=== PATIENT | female | born 1945 | race Asian ===

== ENCOUNTER 2018-02-22 14:21 | Emergency (ER) | payer MEDICARE, OTHER ==
[~2018-02-22] VITALS: Ht 162.6 cm; Wt 75.0 kg
[~2018-02-22 14:21] MED LIST: ATOR20TA86 PO; ESOM40CA PO; GLIP5 PO; LEVO25TA9 PO; LOSA25TA21 PO; MECL-111 PO; METF500T6 PO; PRAV40TA4 PO
[2018-02-22] MEDS ORDERED: ENTE1TAB2 PO (14:40)
[2018-02-22] MEDS ORDERED: OS500 PO (14:40)
[2018-02-22 14:49] LABS: GLUCOSE,POINT OF CARE 218 MG/DL (70-110)
[2018-02-22] MEDS ORDERED: MECLIZINE HCL 25 MG TABLET PO ONE (18:30)
[2018-02-22] MEDS ORDERED: SODIUM CHLORIDE 0.9% 1,000 ML IV ONE (18:30)
[2018-02-22 19:01] LABS: APPEARANCE,URINE CLEAR (CLEAR); BILIRUBIN,URINE NEGATIVE (NEGATIVE); GLUCOSE, URINE (UA) NEGATIVE (NEGATIVE); KETONES,URINE NEGATIVE (NEGATIVE); LEUKOCYTE ESTERASE ,URINE NEGATIVE (NEGATIVE); NITRATE,URINE NEGATIVE (NEGATIVE); OCCULT BLOOD,URINE NEGATIVE (NEGATIVE); PROTEIN,URINE NEGATIVE (NEGATIVE); UROBILINOGEN,URINE 0.2 mg/dL (<=1.0)
[2018-02-22 20:12] LABS: BASOPHILS % (AUTO) 0.7 % (0.0-2.0); EOSINOPHILS % (AUTO) 2.8 % (1.0-6.0); HEMATOCRIT 38.1 % (36-46); HEMOGLOBIN 13.5 g/dL (12.0-16.0); LYMPHOCYTES # (AUTO) 2.9 K/uL (1.0-4.8); LYMPHOCYTES % (AUTO) 41.2 % (22.0-44.0); MEAN CORPUSCULAR HEMOGLOBIN 32.6 pg (26.0-34.0); MEAN CORPUSCULAR HGB CONC 35.4 G/dL (31.0-37.0); MEAN CORPUSCULAR VOLUME 92 fL (80-100); MONOCYTES # (AUTO) 0.6 K/uL (0.1-1.0); MONOCYTES % (AUTO) 8.1 % (2.0-9.0); NEUTROPHILS # (AUTO) 3.4 K/uL (1.8-7.7); NEUTROPHILS % (AUTO) 47.2 % (40.0-70.0); PLATELET COUNT (AUTO) 203 K/uL (150-450); RED BLOOD CELL COUNT(AUTO) 4.13 MIL/uL (4.00-5.20); RED CELL DISTRIBUTION WIDTH 13.3 % (11.5-14.5)
[2018-02-22 20:24] LABS: INR 0.9 (0.9-1.1); PROTHROMBIN TIME 9.8 SEC (9.4-11.6)
[2018-02-22 20:26] VITALS: BP 136/75
[2018-02-22 20:29] LABS: ANION GAP 5 mmol/L (8-16); CALCIUM, TOTAL 9.3 mg/dL (8.8-10.5); CARBON DIOXIDE 30 mmol/L (22-29); CHLORIDE 102 mmol/L (98-107); CREATININE 0.95 mg/dL (0.60-1.30); GLOMERULAR FILTR. RATE CALC 58 mL/min (>60); GLUCOSE,RANDOM 128 mg/dL (70-110); POTASSIUM 3.9 mmol/L (3.5-5.1); SODIUM SERUM 137 mmol/L (136-145); UREA NITROGEN, BLOOD 14 mg/dL (7-18)
[2018-02-22 20:33] LABS: B-TYPE NATRIURETIC PEPTIDE 22 pg/mL (0-100)
[2018-02-22 20:56] LABS: ALANINE AMINOTRANSFERASE 39 U/L (12-78); ALBUMIN 3.7 g/dL (3.4-5.0); ALKALINE PHOSPHATASE 58 U/L (46-116); ASPARTATE AMINOTRANSFERASE 19 U/L (15-37); BILIRUBIN,TOTAL 0.3 mg/dL (0.1-1.0); CREATINE KINASE MB 0.5 ng/mL (0-5); CREATINE KINASE, TOTAL 89 U/L (26-192); TOTAL PROTEIN, SERUM 7.6 g/dL (6.4-8.2)
== END 2018-02-22 21:26 | disposition home or self-care (01) ==
LOC: EMS 14:23
DX: R42 Dizziness and giddiness (principal); R53.1 Weakness; E11.9 Type 2 diabetes mellitus without complications; E78.00 Pure hypercholesterolemia, unspecified; I10 Essential (primary) hypertension
CPT/HCPCS: 36415; 70450; 71045; 80053; 81003; 82550; 82553; 82962; 83880; 84484; 85025; 85610; 85730; 93005; 99285; J7030

== ENCOUNTER 2020-09-06 09:40 | Emergency (ER) | payer MEDICARE, OTHER ==
[~2020-09-06] VITALS: Ht 162.6 cm; Wt 72.7 kg
[~2020-09-06 09:40] MED LIST changes: +ENTE1TAB2 PO; -GLIP5 PO; -MECL-111 PO; +MECL-134 PO; +METF-960 PO; -METF500T6 PO; +OS500 PO; -PRAV40TA4 PO
[2020-09-06] MEDS ORDERED: [UNRECOGNIZED DRUG - CODE] PO (10:13)
[2020-09-06 11:27] LABS: EOSINOPHILS % (AUTO) 2.4 % (1.0-6.0); HEMATOCRIT 39.1 % (36-46); HEMOGLOBIN 13.1 g/dL (12.0-16.0); LYMPHOCYTES # (AUTO) 1.6 K/uL (1.0-4.8); LYMPHOCYTES % (AUTO) 25.9 % (22.0-44.0); MEAN CORPUSCULAR HEMOGLOBIN 31.3 pg (26.0-34.0); MEAN CORPUSCULAR HGB CONC 33.5 G/dL (31.0-37.0); MEAN CORPUSCULAR VOLUME 93 fL (80-100); MONOCYTES # (AUTO) 0.5 K/uL (0.1-1.0); MONOCYTES % (AUTO) 7.8 % (2.0-9.0); NEUTROPHILS # (AUTO) 3.8 K/uL (1.8-7.7); NEUTROPHILS % (AUTO) 62.9 % (40.0-70.0); PLATELET COUNT (AUTO) 166 K/uL (150-450); RED BLOOD CELL COUNT(AUTO) 4.18 MIL/uL (4.00-5.20); RED CELL DISTRIBUTION WIDTH 13.6 % (11.5-14.5)
[2020-09-06 11:41] LABS: CALCIUM, TOTAL 9.3 mg/dL (8.8-10.5); CREATININE 0.91 mg/dL (0.60-1.30); POTASSIUM 3.9 mmol/L (3.5-5.1)
[2020-09-06 11:46] LABS: ALBUMIN 3.5 g/dL (3.4-5.0); BILIRUBIN,TOTAL 0.6 mg/dL (0.1-1.0); MAGNESIUM 1.9 mg/dL (1.80-2.40); TOTAL PROTEIN, SERUM 7.5 g/dL (6.4-8.2)
[2020-09-06 13:04] VITALS: BP 151/71
== END 2020-09-06 13:39 | disposition home or self-care (01) ==
LOC: EMS 09:40
DX: R53.1 Weakness (principal); E11.9 Type 2 diabetes mellitus without complications; E78.00 Pure hypercholesterolemia, unspecified; I10 Essential (primary) hypertension; Z20.822 Contact with and (suspected) exposure to COVID-19; Z90.710 Acquired absence of both cervix and uterus
CPT/HCPCS: 80053; 82962; 83690; 83735; 84484; 85025; 93005; 99284; U0003; 82948

== ENCOUNTER 2020-10-19 19:33 | Emergency (ER) | payer MEDICARE, OTHER ==
[~2020-10-19] VITALS: Ht 157.5 cm; Wt 72.7 kg
[~2020-10-19 19:33] MED LIST changes: -ATOR20TA86 PO; -LEVO25TA9 PO; +[UNRECOGNIZED DRUG - CODE] PO
[2020-10-19 21:05] VITALS: BP 126/74
[2020-10-19 21:10] LABS: BASOPHILS % (AUTO) 1.1 % (0.0-2.0); EOSINOPHILS % (AUTO) 2.7 % (1.0-6.0); HEMATOCRIT 41.5 % (36-46); LYMPHOCYTES # (AUTO) 2.4 K/uL (1.0-4.8); MEAN CORPUSCULAR HEMOGLOBIN 31.3 pg (26.0-34.0); MEAN CORPUSCULAR HGB CONC 33.7 G/dL (31.0-37.0); MEAN CORPUSCULAR VOLUME 93 fL (80-100); MONOCYTES # (AUTO) 0.5 K/uL (0.1-1.0); MONOCYTES % (AUTO) 7.6 % (2.0-9.0); NEUTROPHILS # (AUTO) 3.7 K/uL (1.8-7.7); NEUTROPHILS % (AUTO) 53.6 % (40.0-70.0); PLATELET COUNT (AUTO) 200 K/uL (150-450); RED BLOOD CELL COUNT(AUTO) 4.46 MIL/uL (4.00-5.20); RED CELL DISTRIBUTION WIDTH 13.5 % (11.5-14.5)
[2020-10-19 21:29] LABS: ANION GAP 8 mmol/L (8-16); CALCIUM, TOTAL 10.5 mg/dL (8.8-10.5); CARBON DIOXIDE 31 mmol/L (22-29); CHLORIDE 104 mmol/L (98-107); CREATININE 0.85 mg/dL (0.60-1.30); GLUCOSE,RANDOM 100 mg/dL (70-110); POTASSIUM 4.5 mmol/L (3.5-5.1); SODIUM SERUM 143 mmol/L (136-145); UREA NITROGEN, BLOOD 16 mg/dL (7-18)
[2020-10-19 21:34] LABS: GLOMERULAR FILTR. RATE CALC > 60 mL/min (>60)
== END 2020-10-19 21:53 | disposition home or self-care (01) ==
LOC: EMS 19:33
DX: R53.1 Weakness (principal); E11.9 Type 2 diabetes mellitus without complications; E78.00 Pure hypercholesterolemia, unspecified; I10 Essential (primary) hypertension; Z90.710 Acquired absence of both cervix and uterus; Z79.899 Other long term (current) drug therapy
CPT/HCPCS: 99283

== ENCOUNTER 2020-12-16 08:48 | Emergency (ER) | payer MEDICARE, OTHER ==
[~2020-12-16] VITALS: Ht 160 cm; Wt 59.1 kg
[2020-12-16] MEDS ORDERED: CYCLOBENZAPRINE HCL 10 MG TABLET PO ONE (09:45)
[2020-12-16 10:39] LABS: EOSINOPHILS % (AUTO) 3.3 % (1.0-6.0); HEMATOCRIT 39.5 % (36-46); HEMOGLOBIN 13.5 g/dL (12.0-16.0); LYMPHOCYTES # (AUTO) 1.5 K/uL (1.0-4.8); LYMPHOCYTES % (AUTO) 24.2 % (22.0-44.0); MEAN CORPUSCULAR HEMOGLOBIN 32.1 pg (26.0-34.0); MEAN CORPUSCULAR HGB CONC 34.2 G/dL (31.0-37.0); MEAN CORPUSCULAR VOLUME 94 fL (80-100); MONOCYTES # (AUTO) 0.4 K/uL (0.1-1.0); NEUTROPHILS # (AUTO) 3.9 K/uL (1.8-7.7); NEUTROPHILS % (AUTO) 64.5 % (40.0-70.0); PLATELET COUNT (AUTO) 178 K/uL (150-450); RED BLOOD CELL COUNT(AUTO) 4.21 MIL/uL (4.00-5.20); RED CELL DISTRIBUTION WIDTH 13.4 % (11.5-14.5)
[2020-12-16 11:41] LABS: APPEARANCE,URINE CLEAR (CLEAR); BILIRUBIN,URINE NEGATIVE (NEGATIVE); GLUCOSE, URINE (UA) NEGATIVE (NEGATIVE); KETONES,URINE NEGATIVE (NEGATIVE); LEUKOCYTE ESTERASE ,URINE NEGATIVE (NEGATIVE); NITRATE,URINE NEGATIVE (NEGATIVE); OCCULT BLOOD,URINE TRACE (NEGATIVE); PH,URINE 5.5 (5.0-8.0); PROTEIN,URINE NEGATIVE (NEGATIVE); UROBILINOGEN,URINE 0.2 mg/dL (<=1.0)
[2020-12-16 11:57] LABS: BACTERIA,URINE None Seen /HPF (None Seen); RBC,URINE None Seen /HPF (0-2); SQUAMOUS EPITHELIAL CELL,UR Few /LPF (None Seen); WBC,URINE None Seen /HPF (0-5)
[2020-12-16 13:08] LABS: ANION GAP 13 mmol/L (8-16); CALCIUM, TOTAL 9.4 mg/dL (8.8-10.5); CARBON DIOXIDE 24 mmol/L (22-29); CHLORIDE 105 mmol/L (98-107); CREATININE 0.79 mg/dL (0.60-1.30); GLOMERULAR FILTR. RATE CALC > 60 mL/min (>60); GLUCOSE,RANDOM 144 mg/dL (70-110); POTASSIUM 4.3 mmol/L (3.5-5.1); SODIUM SERUM 142 mmol/L (136-145); UREA NITROGEN, BLOOD 16 mg/dL (7-18)
[2020-12-16 13:12] LABS: BILIRUBIN,TOTAL 0.6 mg/dL (0.1-1.0); TOTAL PROTEIN, SERUM 8.1 g/dL (6.4-8.2)
[2020-12-16 13:23] LABS: ALANINE AMINOTRANSFERASE 43 U/L (12-78); ALBUMIN 4.1 g/dL (3.4-5.0); ALKALINE PHOSPHATASE 52 U/L (46-116); ASPARTATE AMINOTRANSFERASE 22 U/L (15-37)
[2020-12-16 13:50] VITALS: BP 123/65
== END 2020-12-16 13:55 | disposition home or self-care (01) ==
LOC: EMS 08:53
DX: R42 Dizziness and giddiness (principal); M54.2 Cervicalgia; I10 Essential (primary) hypertension; E11.9 Type 2 diabetes mellitus without complications; E78.00 Pure hypercholesterolemia, unspecified
CPT/HCPCS: 70450; 80053; 81001; 85025; 93005; 99285

== ENCOUNTER 2020-12-19 08:40 | Emergency (ER) | payer MEDICARE, OTHER ==
[~2020-12-19] VITALS: Ht 160 cm; Wt 75.0 kg
[2020-12-19] MEDS ORDERED: MECLIZINE HCL 25 MG TABLET PO ONE (09:00)
[2020-12-19 09:44] LABS: BASOPHILS % (AUTO) 1.1 % (0.0-2.0); EOSINOPHILS % (AUTO) 2.4 % (1.0-6.0); HEMOGLOBIN 13.9 g/dL (12.0-16.0); LYMPHOCYTES % (AUTO) 28.5 % (22.0-44.0); MEAN CORPUSCULAR HEMOGLOBIN 31.9 pg (26.0-34.0); MEAN CORPUSCULAR VOLUME 94 fL (80-100); MONOCYTES # (AUTO) 0.5 K/uL (0.1-1.0); NEUTROPHILS # (AUTO) 4.2 K/uL (1.8-7.7); RED BLOOD CELL COUNT(AUTO) 4.37 MIL/uL (4.00-5.20); RED CELL DISTRIBUTION WIDTH 13.4 % (11.5-14.5)
[2020-12-19 09:50] LABS: ANION GAP 13 mmol/L (8-16); CALCIUM, TOTAL 9.8 mg/dL (8.8-10.5); CARBON DIOXIDE 25 mmol/L (22-29); CHLORIDE 101 mmol/L (98-107); CREATININE 0.87 mg/dL (0.60-1.30); GLUCOSE,RANDOM 174 mg/dL (70-110); POTASSIUM 4.1 mmol/L (3.5-5.1); SODIUM SERUM 139 mmol/L (136-145); UREA NITROGEN, BLOOD 14 mg/dL (7-18)
[2020-12-19 09:51] LABS: GLOMERULAR FILTR. RATE CALC > 60 mL/min (>60)
[2020-12-19 10:12] LABS: B-TYPE NATRIURETIC PEPTIDE 9 pg/mL (0-100)
[2020-12-19 10:15] LABS: ALANINE AMINOTRANSFERASE 46 U/L (12-78); ALBUMIN 4.1 g/dL (3.4-5.0); ALKALINE PHOSPHATASE 57 U/L (46-116); ASPARTATE AMINOTRANSFERASE 28 U/L (15-37); BILIRUBIN,TOTAL 0.6 mg/dL (0.1-1.0); CREATINE KINASE, TOTAL ONLY 80 U/L (26-192); TOTAL PROTEIN, SERUM 7.8 g/dL (6.4-8.2)
[2020-12-19 10:46] LABS: PLATELET COUNT (AUTO) 172 K/uL (150-450)
[2020-12-19 10:48] LABS: APPEARANCE,URINE CLEAR (CLEAR); BILIRUBIN,URINE NEGATIVE (NEGATIVE); GLUCOSE, URINE (UA) 100 mg/dL (NEGATIVE); KETONES,URINE NEGATIVE (NEGATIVE); LEUKOCYTE ESTERASE ,URINE NEGATIVE (NEGATIVE); NITRATE,URINE NEGATIVE (NEGATIVE); OCCULT BLOOD,URINE SMALL (NEGATIVE); PH,URINE 5.5 (5.0-8.0); PROTEIN,URINE NEGATIVE (NEGATIVE); UROBILINOGEN,URINE 0.2 mg/dL (<=1.0)
[2020-12-19 10:52] VITALS: BP 140/74
[2020-12-19 10:53] LABS: AMPHET/METH SCREEN,URINE NEGATIVE (NEGATIVE); BARBITURATE SCREEN, URINE NEGATIVE (NEGATIVE); BENZODIAZEPINES SCREEN,URINE NEGATIVE (NEGATIVE); CANNABINOID SCREEN,URINE NEGATIVE (NEGATIVE); COCAINE SCREEN,URINE NEGATIVE (NEGATIVE); METHADONE SCREEN, URINE NEGATIVE (NEGATIVE); OPIATE SCREEN,URINE NEGATIVE (NEGATIVE)
[2020-12-19 10:55] LABS: BACTERIA,URINE None Seen /HPF (None Seen); RBC,URINE 0-2 /HPF (0-2); WBC,URINE None Seen /HPF (0-5)
[2020-12-19 10:56] LABS: SQUAMOUS EPITHELIAL CELL,UR Rare /LPF (None Seen)
[2020-12-19 10:57] LABS: PHENCYCLIDINE SCREEN,URINE NEGATIVE (NEGATIVE)
== END 2020-12-19 11:13 | disposition home or self-care (01) ==
LOC: EMS 08:40
DX: F41.9 Anxiety disorder, unspecified (principal)
CPT/HCPCS: 36415; 71045; 80053; 80307; 81001; 82550; 83880; 84484; 85025; 93005; 99285; G0480

== ENCOUNTER 2021-01-14 06:51 | Emergency (ER) | payer MEDICARE, OTHER ==
[~2021-01-14] VITALS: Ht 162.6 cm; Wt 75.0 kg
[~2021-01-14 06:51] MED LIST changes: -ENTE1TAB2 PO; +ENTE1TAB7 PO
[2021-01-14] MEDS ORDERED: MECLIZINE HCL 25 MG TABLET PO ONE (07:00)
[2021-01-14] MEDS ORDERED: ACETAMINOPHEN 500 MG TABLET PO ONE (07:00)
[2021-01-14 07:24] LABS: COVID AG,FIA SOURCE NASOPHARYNGEAL
[2021-01-14] MEDS ORDERED: SODIUM CHLORIDE 0.9% 1,000 ML IV ONE ×2 (07:30→09:00)
[2021-01-14 08:04] LABS: CALCIUM, TOTAL 9.6 mg/dL (8.8-10.5); CREATININE 1.01 mg/dL (0.60-1.30); POTASSIUM 3.9 mmol/L (3.5-5.1)
[2021-01-14 08:07] LABS: BASOPHILS % (AUTO) 0.8 % (0.0-2.0); EOSINOPHILS % (AUTO) 1.1 % (1.0-6.0); HEMATOCRIT 39.8 % (36-46); HEMOGLOBIN 13.5 g/dL (12.0-16.0); LYMPHOCYTES # (AUTO) 1.7 K/uL (1.0-4.8); LYMPHOCYTES % (AUTO) 26.7 % (22.0-44.0); MEAN CORPUSCULAR HEMOGLOBIN 31.6 pg (26.0-34.0); MEAN CORPUSCULAR HGB CONC 34.1 G/dL (31.0-37.0); MEAN CORPUSCULAR VOLUME 93 fL (80-100); MONOCYTES # (AUTO) 0.3 K/uL (0.1-1.0); MONOCYTES % (AUTO) 5.4 % (2.0-9.0); NEUTROPHILS # (AUTO) 4.1 K/uL (1.8-7.7); PLATELET COUNT (AUTO) 208 K/uL (150-450); RED BLOOD CELL COUNT(AUTO) 4.29 MIL/uL (4.00-5.20); RED CELL DISTRIBUTION WIDTH 13.2 % (11.5-14.5)
[2021-01-14 08:15] LABS: APPEARANCE,URINE CLEAR (CLEAR); BILIRUBIN,URINE NEGATIVE (NEGATIVE); GLUCOSE, URINE (UA) 250 mg/dL (NEGATIVE); KETONES,URINE NEGATIVE (NEGATIVE); LEUKOCYTE ESTERASE ,URINE NEGATIVE (NEGATIVE); NITRATE,URINE NEGATIVE (NEGATIVE); OCCULT BLOOD,URINE TRACE (NEGATIVE); PH,URINE 5.5 (5.0-8.0); PROTEIN,URINE NEGATIVE (NEGATIVE); UROBILINOGEN,URINE 0.2 mg/dL (<=1.0)
[2021-01-14 08:29] LABS: BILIRUBIN,TOTAL 0.5 mg/dL (0.1-1.0); TOTAL PROTEIN, SERUM 7.7 g/dL (6.4-8.2)
[2021-01-14 08:30] LABS: BACTERIA,URINE None Seen /HPF (None Seen); RBC,URINE None Seen /HPF (0-2); SQUAMOUS EPITHELIAL CELL,UR Few /LPF (None Seen); WBC,URINE 0-2 /HPF (0-5)
[2021-01-14 08:38] LABS: LACTIC ACID 2.7 mmol/L (0.4-2.0)
[2021-01-14 13:07] VITALS: BP 128/65
== END 2021-01-14 13:26 | disposition home or self-care (01) ==
LOC: EMS 06:51
DX: R42 Dizziness and giddiness (principal); E11.9 Type 2 diabetes mellitus without complications; F41.9 Anxiety disorder, unspecified; I10 Essential (primary) hypertension; Z20.822 Contact with and (suspected) exposure to COVID-19
CPT/HCPCS: 36415; 70450; 71045; 80053; 81001; 82550; 83605; 83880; 84484; 85025; 87040; 87426; 93005; 96360; 96361; 99285; J7030

== ENCOUNTER 2021-08-11 14:21 | Emergency (ER) | payer MEDICARE, OTHER ==
[~2021-08-11] VITALS: Ht 152.4 cm; Wt 67.8 kg
[~2021-08-11 14:21] MED LIST changes: +AMLO2.5T96 PO; +APIX2.5T PO; -ENTE1TAB7 PO; -ESOM40CA PO; -LOSA25TA21 PO; +LOSA50TA37 PO; -MECL-134 PO; +MELA5TAB40 PO; +METF-1211 PO; -METF-960 PO; +MIRT-89 PO; +OMEG-135 PO; -OS500 PO; +PANT-31 PO; +PARO10TA71 PO; -[UNRECOGNIZED DRUG - CODE] PO
[2021-08-11 14:23] LABS: BASOPHILS % (AUTO) 0.5 % (0.0-2.0); EOSINOPHILS % (AUTO) 0.7 % (1.0-6.0); HEMATOCRIT 41.2 % (36-46); HEMOGLOBIN 14.6 g/dL (12.0-16.0); LYMPHOCYTES # (AUTO) 1.6 K/uL (1.0-4.8); MEAN CORPUSCULAR HEMOGLOBIN 32.2 pg (26.0-34.0); MEAN CORPUSCULAR HGB CONC 35.3 G/dL (31.0-37.0); MEAN CORPUSCULAR VOLUME 91 fL (80-100); MONOCYTES # (AUTO) 0.6 K/uL (0.1-1.0); MONOCYTES % (AUTO) 9.3 % (2.0-9.0); NEUTROPHILS # (AUTO) 4.6 K/uL (1.8-7.7); NEUTROPHILS % (AUTO) 66.5 % (40.0-70.0); PLATELET COUNT (AUTO) 266 K/uL (150-450); RED BLOOD CELL COUNT(AUTO) 4.52 MIL/uL (4.00-5.20); RED CELL DISTRIBUTION WIDTH 13.3 % (11.5-14.5)
[2021-08-11 14:35] LABS: PROTHROMBIN TIME 10.5 SEC (9.4-11.6)
[2021-08-11 14:36] LABS: ANION GAP 9 mmol/L (8-16); CALCIUM, TOTAL 9.6 mg/dL (8.8-10.5); CARBON DIOXIDE 28 mmol/L (22-29); CHLORIDE 98 mmol/L (98-107); CREATININE 0.91 mg/dL (0.60-1.30); GLOMERULAR FILTR. RATE CALC 60 mL/min (>60); GLUCOSE,RANDOM 168 mg/dL (70-110); POTASSIUM 3.9 mmol/L (3.5-5.1); SODIUM SERUM 135 mmol/L (136-145); UREA NITROGEN, BLOOD 18 mg/dL (7-18)
[2021-08-11 14:40] LABS: ALANINE AMINOTRANSFERASE 29 U/L (12-78); ALBUMIN 3.6 g/dL (3.4-5.0); ALKALINE PHOSPHATASE 61 U/L (46-116); ASPARTATE AMINOTRANSFERASE 17 U/L (15-37); BILIRUBIN,TOTAL 0.4 mg/dL (0.1-1.0); LIPASE 345 U/L (73-393); TOTAL PROTEIN, SERUM 7.9 g/dL (6.4-8.2)
[2021-08-11 14:48] LABS: COVID AG,FIA SOURCE NASOPHARYNGEAL
[2021-08-11 16:48] VITALS: BP 158/82
== END 2021-08-11 16:57 | disposition home or self-care (01) ==
LOC: EMS 14:27
DX: G47.00 Insomnia, unspecified (principal); F41.9 Anxiety disorder, unspecified; R42 Dizziness and giddiness; E11.9 Type 2 diabetes mellitus without complications; E78.00 Pure hypercholesterolemia, unspecified; I10 Essential (primary) hypertension; Z20.822 Contact with and (suspected) exposure to COVID-19; Z90.710 Acquired absence of both cervix and uterus; Z79.84 Long term (current) use of oral hypoglycemic drugs
CPT/HCPCS: 36415; 71045; 80053; 82962; 83690; 84484; 85025; 85610; 87426; 93005; 99285; G0480; 82948

== ENCOUNTER 2021-11-02 12:38 | Emergency (ER) | payer MEDICARE, OTHER ==
[~2021-11-02] VITALS: Ht 160 cm; Wt 63.6 kg
[~2021-11-02 12:38] MED LIST changes: +LOSA-382 PO; -LOSA50TA37 PO; +OMEG-108 PO; -OMEG-135 PO
[2021-11-02] MEDS ORDERED: ACETAMINOPHEN 500 MG TABLET PO ONE (13:00)
[2021-11-02 13:10] VITALS: BP 108/70
[2021-11-02 13:21] LABS: COVID AG,FIA SOURCE NASOPHARYNGEAL
== END 2021-11-02 14:18 | disposition home or self-care (01) ==
LOC: EMS 12:42
DX: R05.9 Cough, unspecified (principal); R50.9 Fever, unspecified; Z20.822 Contact with and (suspected) exposure to COVID-19; I10 Essential (primary) hypertension; F32.9 Major depressive disorder, single episode, unspecified; Z79.899 Other long term (current) drug therapy; Z79.84 Long term (current) use of oral hypoglycemic drugs
CPT/HCPCS: 71045; 82962; 99284

== ENCOUNTER 2021-11-19 11:29 | Inpatient (IN) | payer MEDICARE, OTHER ==
[~2021-11-19] VITALS: Ht 160 cm; Wt 69.8 kg
[2021-11-19] MEDS ORDERED: MIDAZOLAM HCL 2 MG/2 ML VIAL IVP ONE (12:00)
[2021-11-19] MEDS ORDERED: FentaNYL CITRATE PF 100 MCG/2 ML VIAL IVP ONE (12:00)
[2021-11-19] MEDS ORDERED: SODIUM CHLORIDE 0.9% 1,000 ML IV ONE (13:00)
[2021-11-19] MEDS ORDERED: 0.9% SODIUM CHLORIDE 10 ML SYRINGE IVP PRN (13:00)
[2021-11-19 13:21] LABS: BASOPHILS % (AUTO) 0.5 % (0.0-2.0); EOSINOPHILS % (AUTO) 3.8 % (1.0-6.0); HEMATOCRIT 34.8 % (36-46); HEMOGLOBIN 11.8 g/dL (12.0-16.0); LYMPHOCYTES # (AUTO) 1.6 K/uL (1.0-4.8); LYMPHOCYTES % (AUTO) 22.6 % (22.0-44.0); MEAN CORPUSCULAR HEMOGLOBIN 31.5 pg (26.0-34.0); MEAN CORPUSCULAR HGB CONC 33.8 G/dL (31.0-37.0); MEAN CORPUSCULAR VOLUME 93 fL (80-100); MONOCYTES # (AUTO) 0.7 K/uL (0.1-1.0); MONOCYTES % (AUTO) 9.2 % (2.0-9.0); NEUTROPHILS # (AUTO) 4.6 K/uL (1.8-7.7); NEUTROPHILS % (AUTO) 63.9 % (40.0-70.0); PLATELET COUNT (AUTO) 220 K/uL (150-450); RED BLOOD CELL COUNT(AUTO) 3.73 MIL/uL (4.00-5.20); RED CELL DISTRIBUTION WIDTH 13.3 % (11.5-14.5)
[2021-11-19 13:36] LABS: CREATININE 1.03 mg/dL (0.60-1.30); POTASSIUM 3.8 mmol/L (3.5-5.1)
[2021-11-19 13:42] LABS: ALBUMIN 3.5 g/dL (3.4-5.0); BILIRUBIN,TOTAL 0.2 mg/dL (0.1-1.0); TOTAL PROTEIN, SERUM 7.4 g/dL (6.4-8.2)
[2021-11-19] MEDS ORDERED: IOHEXOL 350 MG/ML 100 ML VIAL ONE (15:56)
[2021-11-19] MEDS ORDERED: SODIUM CHLORIDE 0.9% 100 ML ONE (15:56)
[2021-11-19] MEDS ORDERED: PIPERACILLIN/TAZO 3.375 GM/D5W 50 ML IV ONE (20:45)
[2021-11-19 21:41] LABS: GLUCOMETER DEV NAME(LOC) ERT.5; GLUCOSE,POINT OF CARE 133 MG/DL (70-110)
[2021-11-19] MEDS ORDERED: MAGNESIUM HYDROXIDE SUSPENSION 30 ML UDCUP PO PRN (22:15)
[2021-11-19] MEDS ORDERED: BISACODYL 10 MG RECTAL RECTAL SUPPOSITORY PR PRN (22:15)
[2021-11-19] MEDS ORDERED: ALBUTEROL SULFATE 2.5 MG/0.5 ML NEB SOLUTION NEB PRN (22:15)
[2021-11-19] MEDS ORDERED: IPRATROPIUM BROMIDE 0.5 MG/2.5 ML NEB SOLUTION NEB PRN (22:15)
[2021-11-19] MEDS ORDERED: ZOLPIDEM TARTRATE 5 MG TABLET PO PRN (22:15)
[2021-11-19] MEDS ORDERED: HYDROCODONE/ACETAMINOPHEN 5-325 MG TABLET PO PRN (22:15)
[2021-11-19] MEDS ORDERED: ONDANSETRON HCL 4 MG/2 ML VIAL IVP PRN (22:15)
[2021-11-19 23:32] VITALS: BP 155/66
[2021-11-20] MEDS: HEPARIN SODIUM,PORCINE 5,000 UNITS/ML VIAL SQ SCH ×4 (01:01→23:32)
[2021-11-20 02:11] LABS: GLUCOMETER DEV NAME(LOC) 6N.2; GLUCOSE,POINT OF CARE 107 MG/DL (70-110)
[2021-11-20] MEDS ORDERED: PIPERACILLIN/TAZO 3.375 GM/D5W 50 ML IV ONE (04:00)
[2021-11-20 05:21] VITALS: BP 120/56
[2021-11-20 07:56] LABS: GLUCOMETER DEV NAME(LOC) 6S.1B; GLUCOSE,POINT OF CARE 117 MG/DL (70-110)
[2021-11-20 08:00] VITALS: BP_SYST 105; BP_SYST 124; BP_DIAS 54; BP_DIAS 61
[2021-11-20] MEDS: PANTOPRAZOLE SODIUM 40 MG/VIAL IVP SCH (08:43)
[2021-11-20] MEDS: AmLODIPine BESYLATE 2.5 MG TABLET PO SCH (08:43)
[2021-11-20] MEDS: DOCUSATE SODIUM 100 MG CAPSULE PO SCH ×2 (08:44→21:00)
[2021-11-20] MEDS: PARoxetine HCL 10 MG TABLET PO SCH ×3 (08:44→21:00)
[2021-11-20] MEDS: ACETAMINOPHEN 325 MG TABLET PO PRN (08:50)
[2021-11-20] MEDS: LOSARTAN POTASSIUM 50 MG TABLET PO SCH (08:52)
[2021-11-20] MEDS ORDERED: PANTOPRAZOLE SODIUM 40 MG DR TABLET PO SCH (09:00)
[2021-11-20] MEDS: DEXTROSE 5%-0.45% SODIUM CHL 1,000 ML IV SCH (10:03)
[2021-11-20 11:16] LABS: GLUCOMETER DEV NAME(LOC) 6S.1B; GLUCOSE,POINT OF CARE 145 MG/DL (70-110)
[2021-11-20] MEDS: PIPERACILLIN/TAZO 3.375 GM/D5W 50 ML IV SCH ×3 (12:31→23:36)
[2021-11-20] MEDS ORDERED: MECL-160 PO (14:17)
[2021-11-20] MEDS ORDERED: QUET25TA PO (14:20)
[2021-11-20] MEDS ORDERED: METF-1211 PO (14:21)
[2021-11-20] MEDS ORDERED: LORA-999 PO (14:22)
[2021-11-20] MEDS ORDERED: DEXTROSE 50%-WATER 25 GM/50 ML SYRINGE IVP PRN (14:45)
[2021-11-20] MEDS ORDERED: LIDOCAINE/PF 2% 5 ML SYRINGE IVP ONE (15:14)
[2021-11-20] MEDS ORDERED: PROPOFOL 1% 20 ML VIAL IVP ONE (15:14)
[2021-11-20] MEDS ORDERED: ROCURONIUM BROMIDE 10 MG/ML 5 ML VIAL IVP ONE (15:14)
[2021-11-20] MEDS ORDERED: ONDANSETRON HCL 4 MG/2 ML VIAL IVP ONE (15:14)
[2021-11-20] MEDS ORDERED: ESMOLOL HCL 10 MG/ML 10 ML VIAL IVP ONE (15:14)
[2021-11-20] MEDS ORDERED: GLYCOPYRROLATE 0.2 MG/ML VIAL IM ONE (15:14)
[2021-11-20] MEDS ORDERED: EPHEDrine SULFATE 50 MG/ML VIAL IM ONE (15:14)
[2021-11-20] MEDS ORDERED: RINGERS SOLUTION,LACTATED 1,000 ML IV ONE (15:23)
[2021-11-20 15:37] LABS: COVID AG,FIA SOURCE NASOPHARYNGEAL
[2021-11-20] MEDS ORDERED: BUPIVACAINE 0.25%/EPI 1:200,000/PF 10 ML VIAL ONE (16:51)
[2021-11-20] MEDS ORDERED: SODIUM CHLORIDE 0.9% 0 ML ONE (16:52)
[2021-11-20] MEDS ORDERED: SUGAMMADEX SODIUM 200 MG/2 ML VIAL IVP ONE (17:28)
[2021-11-20] MEDS: MORPHINE SULFATE 2 MG/ML SYRINGE IVP PRN ×2 (18:31→21:00)
[2021-11-20 19:16] LABS: GLUCOMETER DEV NAME(LOC) 6N.2; GLUCOSE,POINT OF CARE 188 MG/DL (70-110)
[2021-11-20 19:59] VITALS: BP 127/63
[2021-11-20] MEDS: OMEGA-3/DHA/EPA/FISH OIL 1,000 MG CAPSULE PO SCH (21:00)
[2021-11-20] MEDS: MIRTAZAPINE 15 MG TABLET PO SCH (21:00)
[2021-11-20] MEDS: MELATONIN 5 MG TABLET PO SCH (21:00)
[2021-11-20 21:06] LABS: GLUCOMETER DEV NAME(LOC) 6N.2; GLUCOSE,POINT OF CARE 192 MG/DL (70-110)
[2021-11-20] MEDS: INSULIN LISPRO 100 UNITS/ML SQ PRN (21:22)
[2021-11-20 22:11] LABS: GLUCOMETER DEV NAME(LOC) 6N.2; GLUCOSE,POINT OF CARE 197 MG/DL (70-110)
[2021-11-21] MEDS: DEXTROSE 5%-0.45% SODIUM CHL 1,000 ML IV SCH ×2 (00:18→15:58)
[2021-11-21 03:36] VITALS: BP 107/60
[2021-11-21] MEDS: MORPHINE SULFATE 2 MG/ML SYRINGE IVP PRN (04:14)
[2021-11-21] MEDS: PIPERACILLIN/TAZO 3.375 GM/D5W 50 ML IV SCH ×3 (06:51→16:14)
[2021-11-21] MEDS: INSULIN LISPRO 100 UNITS/ML SQ PRN ×3 (06:53→17:39)
[2021-11-21] MEDS: LEVOTHYROXINE SODIUM 25 MCG TABLET PO SCH (07:00)
[2021-11-21] MEDS: PANTOPRAZOLE SODIUM 40 MG/VIAL IVP SCH (07:57)
[2021-11-21] MEDS: AmLODIPine BESYLATE 2.5 MG TABLET PO SCH (07:58)
[2021-11-21] MEDS: QUEtiapine FUMARATE 25 MG TABLET PO SCH (07:58)
[2021-11-21] MEDS: PARoxetine HCL 10 MG TABLET PO SCH ×3 (07:58→21:15)
[2021-11-21] MEDS: LOSARTAN POTASSIUM 50 MG TABLET PO SCH (07:58)
[2021-11-21] MEDS: DOCUSATE SODIUM 100 MG CAPSULE PO SCH ×2 (07:58→21:15)
[2021-11-21] MEDS: HEPARIN SODIUM,PORCINE 5,000 UNITS/ML VIAL SQ SCH ×2 (07:58→16:14)
[2021-11-21 08:41] VITALS: BP 128/64
[2021-11-21] MEDS ORDERED: MECLIZINE HCL 25 MG TABLET PO PRN (09:00)
[2021-11-21] MEDS: LORazepam 0.5 MG TABLET PO SCH (09:52)
[2021-11-21 12:26] LABS: GLUCOMETER DEV NAME(LOC) 6S.1B; GLUCOSE,POINT OF CARE 164 MG/DL (70-110)
[2021-11-21 12:26] LABS: GLUCOMETER DEV NAME(LOC) 6S.1B; GLUCOSE,POINT OF CARE 172 MG/DL (70-110)
[2021-11-21 16:10] VITALS: BP 125/62
[2021-11-21 18:11] LABS: GLUCOMETER DEV NAME(LOC) 6S.1B; GLUCOSE,POINT OF CARE 198 MG/DL (70-110)
[2021-11-21 20:07] VITALS: BP 116/68
[2021-11-21] MEDS: OMEGA-3/DHA/EPA/FISH OIL 1,000 MG CAPSULE PO SCH (21:15)
[2021-11-21] MEDS: MIRTAZAPINE 15 MG TABLET PO SCH (21:15)
[2021-11-21] MEDS: MELATONIN 5 MG TABLET PO SCH (21:15)
[2021-11-21 21:41] LABS: GLUCOMETER DEV NAME(LOC) 6N.1; GLUCOSE,POINT OF CARE 122 MG/DL (70-110)
[2021-11-22 04:48] VITALS: BP 130/75
[2021-11-22] MEDS: LEVOTHYROXINE SODIUM 25 MCG TABLET PO SCH (06:18)
[2021-11-22 07:21] LABS: GLUCOMETER DEV NAME(LOC) 6S.1B; GLUCOSE,POINT OF CARE 138 MG/DL (70-110)
[2021-11-22] MEDS: HEPARIN SODIUM,PORCINE 5,000 UNITS/ML VIAL SQ SCH ×2 (08:00)
[2021-11-22] MEDS: PANTOPRAZOLE SODIUM 40 MG/VIAL IVP SCH (09:00)
[2021-11-22] MEDS: DOCUSATE SODIUM 100 MG CAPSULE PO SCH (09:17)
[2021-11-22] MEDS: LOSARTAN POTASSIUM 50 MG TABLET PO SCH (09:17)
[2021-11-22] MEDS: PARoxetine HCL 10 MG TABLET PO SCH (09:17)
[2021-11-22] MEDS: QUEtiapine FUMARATE 25 MG TABLET PO SCH (09:17)
[2021-11-22] MEDS: AmLODIPine BESYLATE 2.5 MG TABLET PO SCH (09:17)
[2021-11-22] MEDS: LORazepam 0.5 MG TABLET PO SCH (09:17)
[2021-11-22 09:47] VITALS: BP 139/76
[2021-11-22] MEDS: ACETAMINOPHEN 325 MG TABLET PO PRN (11:49)
[2021-11-22] MEDS: INSULIN LISPRO 100 UNITS/ML SQ PRN (11:59)
[2021-11-22 12:21] LABS: GLUCOMETER DEV NAME(LOC) 6N.2; GLUCOSE,POINT OF CARE 166 MG/DL (70-110)
== END 2021-11-22 15:15 | disposition home or self-care (01) | DRG 343 ==
LOC: EMS 11:33 → 6S 22:27
PROVIDERS: ADMIT Hospitalist; ATTEND Hospitalist
PROC: 0DTJ4ZZ Resection of Appendix, Percutaneous Endoscopic Approach (ICD-10-PCS; principal; 2021-11-20 16:30)
DX: K35.80 Unspecified acute appendicitis (principal); K21.9 Gastro-esophageal reflux disease without esophagitis; E11.9 Type 2 diabetes mellitus without complications; F32.A Depression, unspecified; G47.00 Insomnia, unspecified; I10 Essential (primary) hypertension; Z20.822 Contact with and (suspected) exposure to COVID-19; Z86.19 Personal history of other infectious and parasitic diseases
CPT/HCPCS: 74022; 74177; 80053; 82948; 82962; 85025; 87081; 88304; 99285; C9113; J0690; J1644; J2250; J2270; J2405; J2543; J2704; J3010; J3490; J7030; J7050; J7120; Q9967

== ENCOUNTER 2021-11-25 14:35 | Emergency (ER) | payer MEDICARE, OTHER ==
[~2021-11-25] VITALS: Ht 160 cm; Wt 63.6 kg
[~2021-11-25 14:35] MED LIST changes: +LORA-999 PO; +MECL-160 PO; +QUET25TA PO
[2021-11-25] MEDS ORDERED: MAALOX/LIDOCAINE/NYSTATIN SUSP 5 ML ORAL.SYG PO ONE (15:30)
[2021-11-25] MEDS ORDERED: MAGIC240 PO (15:43)
[2021-11-25 16:16] VITALS: BP 141/74
== END 2021-11-25 16:33 | disposition home or self-care (01) ==
LOC: EMS 14:38
DX: K12.0 Recurrent oral aphthae (principal); J20.9 Acute bronchitis, unspecified; I10 Essential (primary) hypertension; F32.9 Major depressive disorder, single episode, unspecified; Z79.899 Other long term (current) drug therapy; Z79.84 Long term (current) use of oral hypoglycemic drugs
CPT/HCPCS: 82962; 99283

== ENCOUNTER 2021-12-25 14:33 | Emergency (ER) | payer MEDICARE, OTHER ==
[~2021-12-25] VITALS: Ht 162.6 cm; Wt 64.5 kg
[~2021-12-25 14:33] MED LIST changes: +MAGIC240 PO
[2021-12-25 14:43] VITALS: BP 122/66
[2021-12-25] MEDS ORDERED: ACETAMINOPHEN 500 MG TABLET PO ONE (15:15)
[2021-12-25] MEDS ORDERED: GuaiFENesin/D-METHORPHAN [SUGAR-FREE] 200-20MG/10 ML SYRUP UDCUP PO ONE (15:15)
[2021-12-25 15:28] LABS: COVID AG,FIA SOURCE NASOPHARYNGEAL
[2021-12-25 15:54] LABS: INFLUENZA TYPE A NEGATIVE FOR TYPE A (NEGATIVE); INFLUENZA TYPE B NEGATIVE FOR TYPE B (NEGATIVE)
[2021-12-25] MEDS ORDERED: CEPH-558 PO (15:57)
[2021-12-25] MEDS ORDERED: GUAIFDM PO (15:57)
[2021-12-25] MEDS ORDERED: ACET-66 PO (15:57)
== END 2021-12-25 16:09 | disposition home or self-care (01) ==
LOC: EMS 14:33
DX: J06.9 Acute upper respiratory infection, unspecified (principal); J02.9 Acute pharyngitis, unspecified; E11.9 Type 2 diabetes mellitus without complications; F32.9 Major depressive disorder, single episode, unspecified; I10 Essential (primary) hypertension; Z20.822 Contact with and (suspected) exposure to COVID-19; Z79.84 Long term (current) use of oral hypoglycemic drugs
CPT/HCPCS: 87430; 87804; 99283

== ENCOUNTER 2022-02-07 12:42 | Emergency (ER) | payer MEDICARE, OTHER ==
[~2022-02-07] VITALS: Ht 162.6 cm; Wt 58.2 kg
[~2022-02-07 12:42] MED LIST changes: +ACET-66 PO; +CEPH-558 PO; +GUAIFDM PO; -MAGIC240 PO; -MECL-160 PO
[2022-02-07] MEDS ORDERED: LORA-1000 PO ×2 (12:48→14:43)
[2022-02-07] MEDS ORDERED: LORazepam 1 MG TABLET PO ONE (14:00)
[2022-02-07] MEDS ORDERED: APIX5TAB PO (14:04)
[2022-02-07] MEDS ORDERED: LEVO25TA9 PO (14:04)
[2022-02-07] MEDS ORDERED: MIRT-92 PO (14:04)
[2022-02-07] MEDS ORDERED: OMEP40CA21 PO (14:04)
[2022-02-07] MEDS ORDERED: MECL-160 PO (14:04)
[2022-02-07] MEDS ORDERED: FLUO20CA36 PO (14:04)
[2022-02-07] MEDS ORDERED: CHOL25TA4 PO (14:05)
[2022-02-07 14:57] VITALS: BP 124/71
== END 2022-02-07 15:10 | disposition home or self-care (01) ==
LOC: EMS 12:42
DX: F41.9 Anxiety disorder, unspecified (principal); F32.A Depression, unspecified; E11.9 Type 2 diabetes mellitus without complications; I10 Essential (primary) hypertension; E03.9 Hypothyroidism, unspecified; H40.9 Unspecified glaucoma; Z86.69 Personal history of other diseases of the nervous system and sense organs; Z87.19 Personal history of other diseases of the digestive system; Z98.890 Other specified postprocedural states
CPT/HCPCS: 71046; 99283

== ENCOUNTER 2022-02-24 14:28 | Emergency (ER) | payer MEDICARE, OTHER ==
[~2022-02-24] VITALS: Ht 162.6 cm; Wt 68.2 kg
[~2022-02-24 14:28] MED LIST changes: -APIX2.5T PO; +APIX5TAB PO; -CEPH-558 PO; +CHOL25TA4 PO; +FLUO20CA36 PO; +LEVO25TA9 PO; +LORA-1000 PO; -LORA-999 PO; +MECL-160 PO; +OMEP40CA21 PO; -PANT-31 PO; -PARO10TA71 PO
[2022-02-24 14:51] VITALS: BP 145/76
[2022-02-24] MEDS ORDERED: LORazepam 1 MG TABLET PO ONE (16:00)
== END 2022-02-24 16:30 | disposition home or self-care (01) ==
LOC: EMS 14:30
DX: F41.9 Anxiety disorder, unspecified (principal); I10 Essential (primary) hypertension; E03.9 Hypothyroidism, unspecified; F32.9 Major depressive disorder, single episode, unspecified; E11.9 Type 2 diabetes mellitus without complications; Z79.899 Other long term (current) drug therapy; Z76.0 Encounter for issue of repeat prescription
CPT/HCPCS: 82962; 99283

== ENCOUNTER 2023-07-03 10:29 | Emergency (ER) | payer MEDICARE, OTHER ==
[~2023-07-03] VITALS: Ht 162.6 cm; Wt 70.0 kg
[~2023-07-03 10:29] MED LIST changes: -MECL-160 PO; +MECL-302 PO; -OMEG-108 PO; +OMEG-135 PO
[2023-07-03 10:50] VITALS: TEMP 98.1
[2023-07-03] MEDS ORDERED: GLIP5TAB15 PO (10:56)
[2023-07-03] MEDS ORDERED: LORA-999 PO (10:56)
[2023-07-03] MEDS ORDERED: ALPR0.255 PO (10:56)
[2023-07-03] MEDS ORDERED: ATOR40TA71 PO (10:56)
[2023-07-03 11:30] LABS: BASOPHILS % (AUTO) 1.5 % (0.0-2.0); EOSINOPHILS % (AUTO) 8.6 % (1.0-6.0); HEMATOCRIT 37.9 % (36-46); HEMOGLOBIN 12.9 g/dL (12.0-16.0); LYMPHOCYTES # (AUTO) 1.5 K/uL (1.0-4.8); LYMPHOCYTES % (AUTO) 25.4 % (22.0-44.0); MEAN CORPUSCULAR VOLUME 94 fL (80-100); MONOCYTES # (AUTO) 0.5 K/uL (0.1-1.0); MONOCYTES % (AUTO) 7.7 % (2.0-9.0); NEUTROPHILS # (AUTO) 3.5 K/uL (1.8-7.7); NEUTROPHILS % (AUTO) 56.8 % (40.0-70.0); PLATELET COUNT (AUTO) 203 K/uL (150-450); RED BLOOD CELL COUNT(AUTO) 4.04 MIL/uL (4.00-5.20); RED CELL DISTRIBUTION WIDTH 13.6 % (11.5-14.5); WHITE BLOOD COUNT (AUTO) 6.1 K/uL (4.5-11.0)
[2023-07-03 11:41] LABS: CALCIUM, TOTAL 9.5 mg/dL (8.8-10.5); CREATININE 1.04 mg/dL (0.60-1.30); POTASSIUM 3.7 mmol/L (3.5-5.1)
[2023-07-03 11:46] LABS: ALBUMIN 3.8 g/dL (3.4-5.0); BILIRUBIN,TOTAL 0.5 mg/dL (0.1-1.0); TOTAL PROTEIN, SERUM 8.1 g/dL (6.4-8.2)
[2023-07-03 11:49] LABS: TROPONIN I-HIGH SENSITIVITY 5 ng/L (<51)
[2023-07-03] MEDS ORDERED: MECLIZINE HCL 25 MG TABLET PO ONE (12:30)
[2023-07-03] MEDS ORDERED: ONDANSETRON HCL 4 MG/2 ML VIAL IVP ONE (12:30)
[2023-07-03] MEDS ORDERED: SODIUM CHLORIDE 0.9% 500 ML IV ONE (12:30)
[2023-07-03 12:31] LABS: GLUCOMETER DEV NAME(LOC) ER.6; GLUCOSE,POINT OF CARE 95 MG/DL (70-110)
[2023-07-03] MEDS ORDERED: MECL-226 PO (13:29)
[2023-07-03 14:23] VITALS: BP 146/68; PULSE 78; RESP 16
== END 2023-07-03 14:23 | disposition home or self-care (01) ==
LOC: EMS 10:29
DX: H81.399 Other peripheral vertigo, unspecified ear (principal); R11.0 Nausea; E11.9 Type 2 diabetes mellitus without complications; E78.00 Pure hypercholesterolemia, unspecified; I11.9 Hypertensive heart disease without heart failure
CPT/HCPCS: 99285; 96374; 70450; 71045; 80053; 82550; 82962; 83880; 84484; 85025; 93005; J2405; J7040; 36415-L1; 36415-TC

== ENCOUNTER 2023-07-09 23:34 | Emergency (ER) | payer MEDICARE, OTHER ==
[~2023-07-09] VITALS: Ht 162.6 cm; Wt 70.5 kg
[~2023-07-09 23:34] MED LIST changes: +ALPR0.255 PO; +ATOR40TA71 PO; +GLIP5TAB15 PO; -GUAIFDM PO; -LORA-1000 PO; +LORA-999 PO; +MECL-226 PO
[2023-07-09 23:57] VITALS: TEMP 98.2
[2023-07-10 00:32] LABS: BASOPHILS % (AUTO) 1.1 % (0.0-2.0); EOSINOPHILS % (AUTO) 10.4 % (1.0-6.0); HEMATOCRIT 37.1 % (36-46); HEMOGLOBIN 12.4 g/dL (12.0-16.0); LYMPHOCYTES # (AUTO) 1.7 K/uL (1.0-4.8); LYMPHOCYTES % (AUTO) 24.7 % (22.0-44.0); MEAN CORPUSCULAR HEMOGLOBIN 31.5 pg (26.0-34.0); MEAN CORPUSCULAR HGB CONC 33.5 G/dL (31.0-37.0); MEAN CORPUSCULAR VOLUME 94 fL (80-100); MONOCYTES # (AUTO) 0.6 K/uL (0.1-1.0); MONOCYTES % (AUTO) 8.9 % (2.0-9.0); NEUTROPHILS # (AUTO) 3.8 K/uL (1.8-7.7); NEUTROPHILS % (AUTO) 54.9 % (40.0-70.0); PLATELET COUNT (AUTO) 198 K/uL (150-450); RED BLOOD CELL COUNT(AUTO) 3.95 MIL/uL (4.00-5.20); RED CELL DISTRIBUTION WIDTH 13.3 % (11.5-14.5); WHITE BLOOD COUNT (AUTO) 6.9 K/uL (4.5-11.0)
[2023-07-10 01:02] LABS: TROPONIN I-HIGH SENSITIVITY 7 ng/L (<51)
[2023-07-10 01:11] LABS: CALCIUM, TOTAL 9.8 mg/dL (8.8-10.5); POTASSIUM 4.3 mmol/L (3.5-5.1)
[2023-07-10 01:36] LABS: ALBUMIN 3.7 g/dL (3.4-5.0); BILIRUBIN,TOTAL 0.6 mg/dL (0.1-1.0); TOTAL PROTEIN, SERUM 7.7 g/dL (6.4-8.2)
[2023-07-10] MEDS ORDERED: SODIUM CHLORIDE 0.9% 500 ML IV ONE (01:45)
[2023-07-10 03:18] VITALS: BP 142/76; PULSE 65; RESP 16
[2023-07-10 08:57] LABS: GLUCOMETER DEV NAME(LOC) ER.6; GLUCOSE,POINT OF CARE 145 MG/DL (70-110)
== END 2023-07-10 03:34 | disposition home or self-care (01) ==
LOC: EDUNIT# 23:34 → EMS 23:35 → EDBD 23:35 → EMS 07-10 03:34
DX: E86.0 Dehydration (principal); I10 Essential (primary) hypertension; R42 Dizziness and giddiness; E11.9 Type 2 diabetes mellitus without complications; E78.00 Pure hypercholesterolemia, unspecified; I11.9 Hypertensive heart disease without heart failure
CPT/HCPCS: 99285; 80053; 82550; 82962; 83880; 84484; 85025; 36415; 71045; 93005; J7040

== ENCOUNTER 2024-01-25 12:44 | Emergency (ER) | payer MEDICARE, OTHER ==
[~2024-01-25] VITALS: Ht 162.6 cm; Wt 63.6 kg
[2024-01-25 12:52] VITALS: TEMP 98.3
[2024-01-25 15:29] LABS: EOSINOPHILS % (AUTO) 4.5 % (1.0-6.0); HEMATOCRIT 37.6 % (36-46); HEMOGLOBIN 12.5 g/dL (12.0-16.0); LYMPHOCYTES # (AUTO) 1.8 K/uL (1.0-4.8); LYMPHOCYTES % (AUTO) 22.6 % (22.0-44.0); MEAN CORPUSCULAR HEMOGLOBIN 31.3 pg (26.0-34.0); MEAN CORPUSCULAR HGB CONC 33.3 G/dL (31.0-37.0); MEAN CORPUSCULAR VOLUME 94 fL (80-100); MONOCYTES # (AUTO) 0.7 K/uL (0.1-1.0); MONOCYTES % (AUTO) 8.5 % (2.0-9.0); NEUTROPHILS # (AUTO) 4.9 K/uL (1.8-7.7); NEUTROPHILS % (AUTO) 63.4 % (40.0-70.0); PLATELET COUNT (AUTO) 177 K/uL (150-450); RED CELL DISTRIBUTION WIDTH 13.4 % (11.5-14.5); WHITE BLOOD COUNT (AUTO) 7.8 K/uL (4.5-11.0)
[2024-01-25 15:33] LABS: APPEARANCE,URINE CLEAR (CLEAR); BILIRUBIN,URINE NEGATIVE (NEGATIVE); COLOR,URINE LIGHT YELLOW (YELLOW); GLUCOSE, URINE (UA) >=1000 mg/dL (NEGATIVE); KETONES,URINE NEGATIVE (NEGATIVE); LEUKOCYTE ESTERASE ,URINE SMALL (NEGATIVE); NITRATE,URINE NEGATIVE (NEGATIVE); OCCULT BLOOD,URINE SMALL (NEGATIVE); PH,URINE 5.5 (5.0-8.0); PROTEIN,URINE 30-70 mg/dL (NEGATIVE); SPECIFIC GRAVITIY, URINE 1.021 (1.003-1.030); UROBILINOGEN,URINE <=1.0 mg/dL (<=1.0)
[2024-01-25] MEDS: SODIUM CHLORIDE 0.9% 1,000 ML IV ONE (15:40)
[2024-01-25 15:47] LABS: BACTERIA,URINE None Seen /HPF (None Seen); RBC,URINE 0-2 /HPF (0-2); SQUAMOUS EPITHELIAL CELL,UR None Seen /LPF (None Seen); URIC ACID CRYSTALS,URINE Moderate /LPF (None Seen)
[2024-01-25 15:54] LABS: CALCIUM, TOTAL 9.7 mg/dL (8.8-10.5); CREATININE 1.11 mg/dL (0.60-1.30); POTASSIUM 3.7 mmol/L (3.5-5.1)
[2024-01-25 16:00] LABS: ALBUMIN 3.5 g/dL (3.4-5.0); BILIRUBIN,TOTAL 0.4 mg/dL (0.1-1.0); TOTAL PROTEIN, SERUM 7.9 g/dL (6.4-8.2)
[2024-01-25 16:02] LABS: TROPONIN I-HIGH SENSITIVITY 6 ng/L (<51)
[2024-01-25 18:00] LABS: TROPONIN I-HIGH SENSITIVITY 7 ng/L (<51)
[2024-01-25 18:09] VITALS: BP 129/68; PULSE 72; RESP 16
[2024-01-25] MEDS ORDERED: POLY119P3 PO (19:44)
== END 2024-01-25 20:01 | disposition home or self-care (01) ==
LOC: EMS 13:12
DX: R10.13 Epigastric pain (principal); I11.9 Hypertensive heart disease without heart failure; E78.00 Pure hypercholesterolemia, unspecified; E11.9 Type 2 diabetes mellitus without complications
CPT/HCPCS: 74022; 74176; 76705; 80053; 81001; 83690; 84484; 85025; 93005; 96360; 99285; 36415-L1; 36415-TC

== ENCOUNTER 2024-02-16 13:25 | Inpatient (IN) | payer MEDICARE, OTHER ==
[~2024-02-16] VITALS: Ht 149.9 cm; Wt 69.5 kg
[~2024-02-16 13:25] MED LIST changes: +FLUO-418 PO; -FLUO20CA36 PO; +POLY119P3 PO
[2024-02-16 14:42] LABS: EOSINOPHILS % (AUTO) 4.5 % (1.0-6.0); HEMATOCRIT 35.8 % (36-46); HEMOGLOBIN 11.8 g/dL (12.0-16.0); LYMPHOCYTES # (AUTO) 1.8 K/uL (1.0-4.8); LYMPHOCYTES % (AUTO) 28.1 % (22.0-44.0); MEAN CORPUSCULAR HEMOGLOBIN 30.9 pg (26.0-34.0); MEAN CORPUSCULAR VOLUME 94 fL (80-100); MONOCYTES # (AUTO) 0.6 K/uL (0.1-1.0); MONOCYTES % (AUTO) 8.4 % (2.0-9.0); NEUTROPHILS # (AUTO) 3.8 K/uL (1.8-7.7); PLATELET COUNT (AUTO) 174 K/uL (150-450); RED BLOOD CELL COUNT(AUTO) 3.82 MIL/uL (4.00-5.20); RED CELL DISTRIBUTION WIDTH 13.5 % (11.5-14.5); WHITE BLOOD COUNT (AUTO) 6.5 K/uL (4.5-11.0)
[2024-02-16 14:50] LABS: CALCIUM, TOTAL 9.2 mg/dL (8.8-10.5); POTASSIUM 3.5 mmol/L (3.5-5.1)
[2024-02-16] MEDS ORDERED: HEPARIN SODIUM,PORCINE 5,000 UNITS/ML VIAL IVP ONE (15:45)
[2024-02-16] MEDS ORDERED: HEPARIN SODIUM,PORCINE 5,000 UNITS/ML VIAL IVP PRN ×2 (15:45)
[2024-02-16 16:14] LABS: INR 1.1 (0.9-1.1); PROTHROMBIN TIME 11.2 SEC (9.4-11.6)
[2024-02-16 16:36] LABS: ALBUMIN 3.3 g/dL (3.4-5.0); BILIRUBIN,DIRECT 0.1 mg/dL (0.00-0.20); BILIRUBIN,TOTAL 0.5 mg/dL (0.1-1.0); TOTAL PROTEIN, SERUM 7.3 g/dL (6.4-8.2)
[2024-02-16] MEDS: HEPARIN SODIUM,PORCINE 5,000 UNITS/ML VIAL IVP ONE (16:42)
[2024-02-16] MEDS: HEPARIN SODIUM 25000 UNITS/D5W 250 ML IV PRN (16:44)
[2024-02-16] MEDS ORDERED: IPRATROPIUM BROMIDE 0.5 MG/2.5 ML NEB SOLUTION NEB PRN (19:00)
[2024-02-16] MEDS ORDERED: MAGNESIUM HYDROXIDE SUSPENSION 30 ML UDCUP PO PRN (19:00)
[2024-02-16] MEDS ORDERED: MORPHINE SULFATE 2 MG/ML SYRINGE IVP PRN (19:00)
[2024-02-16] MEDS ORDERED: BISACODYL 10 MG RECTAL RECTAL SUPPOSITORY PR PRN (19:00)
[2024-02-16] MEDS ORDERED: MECLIZINE HCL 12.5 MG TABLET PO PRN (19:00)
[2024-02-16] MEDS ORDERED: ZOLPIDEM TARTRATE 5 MG TABLET PO PRN (19:00)
[2024-02-16] MEDS ORDERED: ONDANSETRON HCL 4 MG/2 ML VIAL IVP PRN (19:00)
[2024-02-16] MEDS ORDERED: ALBUTEROL SULFATE 2.5 MG/0.5 ML NEB SOLUTION NEB PRN (19:00)
[2024-02-16] MEDS ORDERED: LORazepam 0.5 MG TABLET PO PRN (19:00)
[2024-02-16] MEDS ORDERED: LORA-1000 PO (19:08)
[2024-02-16] MEDS ORDERED: ALPRAZolam 0.25 MG TABLET PO PRN (21:00)
[2024-02-16] MEDS: OMEGA-3/DHA/EPA/FISH OIL 1,000 MG CAPSULE PO SCH (21:22)
[2024-02-16] MEDS: MIRTAZAPINE 15 MG TABLET PO SCH (21:22)
[2024-02-16] MEDS: MELATONIN 5 MG TABLET PO SCH (21:23)
[2024-02-16 22:11] LABS: GLUCOMETER DEV NAME(LOC) ER.7; GLUCOSE,POINT OF CARE 163 MG/DL (70-110)
[2024-02-16 23:38] VITALS: BP 141/70; PULSE 58; RESP 18; TEMP 97.6
[2024-02-17] MEDS: HYDROCODONE/ACETAMINOPHEN 5-325 MG TABLET PO PRN (02:55)
[2024-02-17 04:00] VITALS: BP 130/58; PULSE 50; RESP 19
[2024-02-17] MEDS: LEVOTHYROXINE SODIUM 25 MCG TABLET PO SCH (05:42)
[2024-02-17] MEDS: GlipiZIDE 5 MG TABLET PO SCH (05:43)
[2024-02-17 07:59] LABS: BASOPHILS % (AUTO) 0.9 % (0.0-2.0); EOSINOPHILS % (AUTO) 6.8 % (1.0-6.0); HEMATOCRIT 35.1 % (36-46); HEMOGLOBIN 11.7 g/dL (12.0-16.0); LYMPHOCYTES # (AUTO) 2.5 K/uL (1.0-4.8); LYMPHOCYTES % (AUTO) 38.1 % (22.0-44.0); MEAN CORPUSCULAR HEMOGLOBIN 31.2 pg (26.0-34.0); MEAN CORPUSCULAR HGB CONC 33.3 G/dL (31.0-37.0); MEAN CORPUSCULAR VOLUME 94 fL (80-100); MONOCYTES # (AUTO) 0.5 K/uL (0.1-1.0); MONOCYTES % (AUTO) 7.4 % (2.0-9.0); NEUTROPHILS # (AUTO) 3.1 K/uL (1.8-7.7); NEUTROPHILS % (AUTO) 46.8 % (40.0-70.0); PLATELET COUNT (AUTO) 168 K/uL (150-450); RED BLOOD CELL COUNT(AUTO) 3.74 MIL/uL (4.00-5.20); RED CELL DISTRIBUTION WIDTH 13.4 % (11.5-14.5); WHITE BLOOD COUNT (AUTO) 6.7 K/uL (4.5-11.0)
[2024-02-17] MEDS ORDERED: ASPI-1444 PO (08:05)
[2024-02-17 08:12] VITALS: BP 122/65; PULSE 47; RESP 18; TEMP 98
[2024-02-17] MEDS: LOSARTAN POTASSIUM 50 MG TABLET PO SCH (08:49)
[2024-02-17] MEDS: AmLODIPine BESYLATE 2.5 MG TABLET PO SCH (08:50)
[2024-02-17] MEDS: ATORVASTATIN CALCIUM 40 MG TABLET PO SCH (08:50)
[2024-02-17] MEDS: PANTOPRAZOLE SODIUM 40 MG DR TABLET PO SCH (08:51)
[2024-02-17] MEDS: FLUoxetine HCL 20 MG CAPSULE PO SCH (08:52)
[2024-02-17] MEDS: CHOLECALCIFEROL (VIT D3) 1,000 UNITS [25 MCG] TABLET PO SCH (08:52)
[2024-02-17] MEDS: QUEtiapine FUMARATE 25 MG TABLET PO SCH (08:52)
[2024-02-17 11:09] VITALS: BP 125/62; PULSE 53; RESP 18; TEMP 98.3
[2024-02-17 12:01] LABS: GLUCOMETER DEV NAME(LOC) 5N.1D; GLUCOSE,POINT OF CARE 174 MG/DL (70-110)
[2024-02-17] MEDS: MECLIZINE HCL 25 MG TABLET PO PRN (15:23)
[2024-02-17 15:36] VITALS: BP 141/74; PULSE 53; RESP 18; TEMP 98.1
[2024-02-17 16:26] LABS: GLUCOMETER DEV NAME(LOC) 5S.1B; GLUCOSE,POINT OF CARE 119 MG/DL (70-110)
[2024-02-17] MEDS ORDERED: DEXTROSE 50%-WATER 25 GM/50 ML SYRINGE IVP PRN (17:30)
[2024-02-17] MEDS ORDERED: LORazepam 0.5 MG TABLET PO PRN (18:00)
[2024-02-17 18:50] LABS: GLUCOMETER DEV NAME(LOC) 5N.2C; GLUCOSE,POINT OF CARE 221 MG/DL (70-110)
[2024-02-17 19:52] VITALS: BP 143/70; PULSE 58; RESP 18; TEMP 98.2
[2024-02-17] MEDS: HEPARIN SODIUM 25000 UNITS/D5W 250 ML IV PRN (20:44)
[2024-02-17] MEDS: ACETAMINOPHEN 325 MG TABLET PO PRN (21:48)
[2024-02-18 00:43] VITALS: BP 111/49; PULSE 61; RESP 18; TEMP 97.7
[2024-02-18 05:01] VITALS: BP 129/66; PULSE 52; RESP 18; TEMP 97.9
[2024-02-18] MEDS: INSULIN LISPRO 100 UNITS/ML SQ PRN (05:35)
[2024-02-18 05:56] LABS: GLUCOMETER DEV NAME(LOC) 5S.2D; GLUCOSE,POINT OF CARE 142 MG/DL (70-110)
[2024-02-18 08:16] LABS: GLUCOMETER DEV NAME(LOC) 5N.2C; GLUCOSE,POINT OF CARE 155 MG/DL (70-110)
[2024-02-18] MEDS ORDERED: APIX5TAB PO (11:21)
[2024-02-18 12:51] LABS: GLUCOMETER DEV NAME(LOC) 5S.2D; GLUCOSE,POINT OF CARE 154 MG/DL (70-110)
== END 2024-02-18 16:45 | disposition home or self-care (01) | DRG 197 ==
LOC: EMS 13:51 → EDH 18:57 → 5S 22:14
PROVIDERS: ADMIT Hospitalist; ATTEND Hospitalist
DX: I82.491 Acute embolism and thrombosis of other specified deep vein of right lower extremity (principal); E03.9 Hypothyroidism, unspecified; E11.9 Type 2 diabetes mellitus without complications; I10 Essential (primary) hypertension; K21.9 Gastro-esophageal reflux disease without esophagitis; E66.9 Obesity, unspecified; F41.1 Generalized anxiety disorder; Z86.718 Personal history of other venous thrombosis and embolism; Z90.49 Acquired absence of other specified parts of digestive tract; Z68.30 Body mass index [BMI] 30.0-30.9, adult
CPT/HCPCS: 71045; 76700; 80048; 80076; 82962; 83690; 85025; 85610; 85730; 93005; 93971; 96365; 96375; 99285; G0378; J1644; Q9967; 36415-L1; 36415-TC

== ENCOUNTER 2024-03-08 09:42 | Emergency (ER) | payer MEDICARE, OTHER ==
[~2024-03-08] VITALS: Ht 162.6 cm; Wt 70.5 kg
[~2024-03-08 09:42] MED LIST changes: -ALPR0.255 PO; -AMLO2.5T96 PO; +ASPI-1444 PO; -GLIP5TAB15 PO; -LORA-999 PO; -MECL-226 PO; -OMEG-135 PO; -POLY119P3 PO; -QUET25TA PO
[2024-03-08 09:47] VITALS: BP 142/67; PULSE 59; RESP 12; TEMP 98
== END 2024-03-08 11:09 | disposition home or self-care (01) ==
LOC: EMS 09:42
DX: I10 Essential (primary) hypertension (principal); E11.9 Type 2 diabetes mellitus without complications; F41.9 Anxiety disorder, unspecified
CPT/HCPCS: 99283; Z7502

== ENCOUNTER 2024-03-17 08:08 | Emergency (ER) | payer MEDICARE, OTHER ==
[~2024-03-17] VITALS: Ht 154.9 cm; Wt 71.0 kg
[2024-03-17 08:19] VITALS: BP 138/83; PULSE 61; RESP 19; TEMP 98.1
[2024-03-17] MEDS: DimenhyDRINATE 50 MG TABLET PO ONE (08:38)
[2024-03-17 08:41] LABS: BASOPHILS % (AUTO) 1.2 % (0.0-2.0); EOSINOPHILS % (AUTO) 3.1 % (1.0-6.0); HEMATOCRIT 38.4 % (36-46); HEMOGLOBIN 12.6 g/dL (12.0-16.0); LYMPHOCYTES # (AUTO) 1.4 K/uL (1.0-4.8); LYMPHOCYTES % (AUTO) 28.2 % (22.0-44.0); MEAN CORPUSCULAR HEMOGLOBIN 30.7 pg (26.0-34.0); MEAN CORPUSCULAR HGB CONC 32.9 G/dL (31.0-37.0); MEAN CORPUSCULAR VOLUME 93 fL (80-100); MONOCYTES # (AUTO) 0.4 K/uL (0.1-1.0); MONOCYTES % (AUTO) 7.4 % (2.0-9.0); NEUTROPHILS # (AUTO) 2.9 K/uL (1.8-7.7); NEUTROPHILS % (AUTO) 60.1 % (40.0-70.0); PLATELET COUNT (AUTO) 193 K/uL (150-450); RED BLOOD CELL COUNT(AUTO) 4.11 MIL/uL (4.00-5.20); RED CELL DISTRIBUTION WIDTH 13.6 % (11.5-14.5); WHITE BLOOD COUNT (AUTO) 4.9 K/uL (4.5-11.0)
[2024-03-17] MEDS ORDERED: DIME50TA23 PO (08:50)
[2024-03-17 08:52] LABS: CALCIUM, TOTAL 9.1 mg/dL (8.8-10.5); CREATININE 1.12 mg/dL (0.60-1.30); POTASSIUM 3.8 mmol/L (3.5-5.1)
== END 2024-03-17 09:50 | disposition home or self-care (01) ==
LOC: EMS 08:09
DX: R42 Dizziness and giddiness (principal); I10 Essential (primary) hypertension; E11.9 Type 2 diabetes mellitus without complications; E78.00 Pure hypercholesterolemia, unspecified; F32.A Depression, unspecified; Z90.49 Acquired absence of other specified parts of digestive tract
CPT/HCPCS: 80048; 82962; 85025; 93005; 99284

== ENCOUNTER 2024-04-04 12:58 | Emergency (ER) | payer MEDICARE, OTHER ==
[~2024-04-04] VITALS: Ht 157.5 cm; Wt 68.2 kg
[~2024-04-04 12:58] MED LIST changes: -ASPI-1444 PO; -FLUO-418 PO; +LEVO750T68 PO; +LORA-1000 PO; +LOSA-381 PO; -LOSA-382 PO; -MELA5TAB40 PO; -MIRT-89 PO; +PROP10DR4 OU
[2024-04-04 13:02] VITALS: TEMP 98.2
[2024-04-04 15:54] VITALS: BP 119/54; PULSE 62; RESP 18
[2024-04-04] MEDS ORDERED: LORA-1000 PO (16:55)
== END 2024-04-04 17:12 | disposition home or self-care (01) ==
LOC: EMS 12:58
DX: F41.9 Anxiety disorder, unspecified (principal); Z76.0 Encounter for issue of repeat prescription; E11.9 Type 2 diabetes mellitus without complications; I10 Essential (primary) hypertension
CPT/HCPCS: 82962; 99282; Z7502

== ENCOUNTER 2024-07-02 12:07 | Emergency (ER) | payer MEDICARE, OTHER ==
[~2024-07-02] VITALS: Ht 162.6 cm; Wt 66.0 kg
[~2024-07-02 12:07] MED LIST changes: -LEVO750T68 PO
[2024-07-02 12:22] VITALS: TEMP 99.4
[2024-07-02 12:42] LABS: COVID AG,FIA SOURCE NASAL SWAB
[2024-07-02 13:32] LABS: SARS-COV2 (COVID) ANTIGEN,FIA Negative (Negative)
[2024-07-02 13:33] LABS: INFLUENZA TYPE A NEGATIVE FOR TYPE A (NEGATIVE); INFLUENZA TYPE B NEGATIVE FOR TYPE B (NEGATIVE)
[2024-07-02 13:35] LABS: RAPID GROUP A STREP NEGATIVE (NEGATIVE)
[2024-07-02 14:26] LABS: GLUCOMETER DEV NAME(LOC) ER.7; GLUCOSE,POINT OF CARE 170 MG/DL (70-110)
[2024-07-02 15:24] VITALS: BP 120/66; PULSE 64; RESP 18; O2SAT 97
[2024-07-02] MEDS ORDERED: GUAIFDM PO (16:06)
[2024-07-02] MEDS ORDERED: BENZ-227 PO (16:06)
== END 2024-07-02 16:17 | disposition home or self-care (01) ==
LOC: EMS 12:07
DX: J40 Bronchitis, not specified as acute or chronic (principal); E11.9 Type 2 diabetes mellitus without complications; E78.00 Pure hypercholesterolemia, unspecified; I10 Essential (primary) hypertension; E78.5 Hyperlipidemia, unspecified; Z79.01 Long term (current) use of anticoagulants; Z90.49 Acquired absence of other specified parts of digestive tract; Z79.899 Other long term (current) drug therapy; Z20.822 Contact with and (suspected) exposure to COVID-19
CPT/HCPCS: 71045; 82962; 87430; 87804; 99284

== ENCOUNTER 2024-08-07 12:31 | Emergency (ER) | payer MEDICARE, OTHER ==
[~2024-08-07] VITALS: Ht 152.4 cm; Wt 65.9 kg
[~2024-08-07 12:31] MED LIST changes: -ACET-66 PO; -LORA-1000 PO; -LOSA-381 PO; -PROP10DR4 OU
[2024-08-07 12:38] VITALS: TEMP 98.3
[2024-08-07] MEDS: DEXAMETHASONE SOD PHOS 4 MG/ML 5 ML VIAL IM ONE (15:39)
[2024-08-07 16:06] VITALS: BP 138/70; PULSE 65; RESP 16; O2SAT 98
== END 2024-08-07 16:07 | disposition home or self-care (01) ==
LOC: EMS 12:31
DX: M54.50 Low back pain, unspecified (principal); M19.90 Unspecified osteoarthritis, unspecified site; E11.9 Type 2 diabetes mellitus without complications; I10 Essential (primary) hypertension; E78.00 Pure hypercholesterolemia, unspecified; H40.9 Unspecified glaucoma; Z79.01 Long term (current) use of anticoagulants; Z79.84 Long term (current) use of oral hypoglycemic drugs; Z90.49 Acquired absence of other specified parts of digestive tract; Z79.899 Other long term (current) drug therapy
CPT/HCPCS: 99283; 96372; J1100

== ENCOUNTER 2024-09-23 10:31 | Emergency (ER) | payer MEDICARE, OTHER ==
[~2024-09-23] VITALS: Ht 162.6 cm; Wt 66.0 kg
[2024-09-23 10:49] VITALS: TEMP 98
[2024-09-23] MEDS ORDERED: PROP10DR15 OU (11:50)
[2024-09-23] MEDS ORDERED: GABA-529 PO (11:50)
[2024-09-23] MEDS ORDERED: LOSA-382 PO (11:50)
[2024-09-23] MEDS ORDERED: ASPI-1444 PO (11:50)
[2024-09-23] MEDS: KETOROLAC TROMETHAMINE 30 MG/ML VIAL IM ONE (12:03)
[2024-09-23 12:22] LABS: BASOPHILS % (AUTO) 0.5 % (0.0-2.0); HEMATOCRIT 38.6 % (36-46); HEMOGLOBIN 12.9 g/dL (12.0-16.0); LYMPHOCYTES # (AUTO) 1.5 K/uL (1.0-4.8); MEAN CORPUSCULAR HEMOGLOBIN 31.3 pg (26.0-34.0); MEAN CORPUSCULAR HGB CONC 33.5 G/dL (31.0-37.0); MEAN CORPUSCULAR VOLUME 93 fL (80-100); MONOCYTES # (AUTO) 0.4 K/uL (0.1-1.0); NEUTROPHILS % (AUTO) 64.5 % (40.0-70.0); PLATELET COUNT (AUTO) 198 K/uL (150-450); RED BLOOD CELL COUNT(AUTO) 4.13 MIL/uL (4.00-5.20); RED CELL DISTRIBUTION WIDTH 13.3 % (11.5-14.5); WHITE BLOOD COUNT (AUTO) 6.2 K/uL (4.5-11.0)
[2024-09-23 12:30] LABS: CALCIUM, TOTAL 9.3 mg/dL (8.8-10.5)
[2024-09-23 12:48] VITALS: BP 148/80; PULSE 67; RESP 18; O2SAT 97
== END 2024-09-23 13:46 | disposition home or self-care (01) ==
LOC: EMS 10:31
DX: M19.012 Primary osteoarthritis, left shoulder (principal); E11.9 Type 2 diabetes mellitus without complications; I10 Essential (primary) hypertension; E78.00 Pure hypercholesterolemia, unspecified; Z79.01 Long term (current) use of anticoagulants; Z79.82 Long term (current) use of aspirin; Z79.84 Long term (current) use of oral hypoglycemic drugs; Z90.49 Acquired absence of other specified parts of digestive tract; Z79.899 Other long term (current) drug therapy
CPT/HCPCS: 99284; 71045; 80048; 85025; 36415; 82962; 96372; J1885

== ENCOUNTER 2024-10-08 10:53 | Emergency (ER) | payer MEDICARE, OTHER ==
[~2024-10-08] VITALS: Ht 162.6 cm; Wt 65.0 kg
[~2024-10-08 10:53] MED LIST changes: +ASPI-1444 PO; +GABA-529 PO; +LOSA-382 PO; +PROP10DR15 OU
[2024-10-08 10:55] VITALS: BP 136/50; PULSE 70; RESP 18; TEMP 97.9; O2SAT 98
[2024-10-08] MEDS ORDERED: IBUP-1492 PO (12:49)
[2024-10-08] MEDS ORDERED: LORA1TAB25 PO (13:00)
[2024-10-08] MEDS: IBUPROFEN 600 MG TABLET PO ONE (13:24)
== END 2024-10-08 13:25 | disposition home or self-care (01) ==
LOC: EMS 10:55
DX: K08.89 Other specified disorders of teeth and supporting structures (principal); H92.02 Otalgia, left ear; E11.9 Type 2 diabetes mellitus without complications; E78.00 Pure hypercholesterolemia, unspecified; F32.A Depression, unspecified; I11.9 Hypertensive heart disease without heart failure; Z79.01 Long term (current) use of anticoagulants; Z79.82 Long term (current) use of aspirin; Z79.84 Long term (current) use of oral hypoglycemic drugs; Z79.899 Other long term (current) drug therapy; Z90.49 Acquired absence of other specified parts of digestive tract
CPT/HCPCS: 82962; 99282

== ENCOUNTER 2025-01-27 11:34 | Emergency (ER) | payer MEDICARE, OTHER ==
[~2025-01-27] VITALS: Ht 162.6 cm; Wt 70.5 kg
[~2025-01-27 11:34] MED LIST changes: +IBUP-1492 PO; +LORA1TAB25 PO
[2025-01-27 12:01] VITALS: TEMP 99
[2025-01-27 12:11] LABS: COVID AG,FIA SOURCE NASAL SWAB
[2025-01-27 12:25] LABS: BASOPHILS % (AUTO) 1.3 % (0.0-2.0); EOSINOPHILS % (AUTO) 4.4 % (1.0-6.0); HEMATOCRIT 37.3 % (36-46); HEMOGLOBIN 12.4 g/dL (12.0-16.0); LYMPHOCYTES # (AUTO) 1.9 K/uL (1.0-4.8); LYMPHOCYTES % (AUTO) 28.7 % (22.0-44.0); MEAN CORPUSCULAR HEMOGLOBIN 30.3 pg (26.0-34.0); MEAN CORPUSCULAR HGB CONC 33.3 G/dL (31.0-37.0); MEAN CORPUSCULAR VOLUME 91 fL (80-100); MONOCYTES # (AUTO) 0.6 K/uL (0.1-1.0); MONOCYTES % (AUTO) 8.9 % (2.0-9.0); NEUTROPHILS # (AUTO) 3.7 K/uL (1.8-7.7); NEUTROPHILS % (AUTO) 56.7 % (40.0-70.0); PLATELET COUNT (AUTO) 197 K/uL (150-450); RED BLOOD CELL COUNT(AUTO) 4.09 MIL/uL (4.00-5.20); RED CELL DISTRIBUTION WIDTH 13.4 % (11.5-14.5); WHITE BLOOD COUNT (AUTO) 6.5 K/uL (4.5-11.0)
[2025-01-27 12:37] LABS: ANION GAP 8 mmol/L (8-16); CARBON DIOXIDE 27 mmol/L (22-29); CHLORIDE 104 mmol/L (98-107); CREATININE 1.25 mg/dL (0.60-1.30); GLOMERULAR FILTR. RATE CALC 41 mL/min (>60); GLUCOSE,RANDOM 107 mg/dL (70-110); POTASSIUM 3.8 mmol/L (3.5-5.1); SODIUM SERUM 139 mmol/L (136-145); UREA NITROGEN, BLOOD 18 mg/dL (7-18)
[2025-01-27 12:46] LABS: TROPONIN I-HIGH SENSITIVITY 4 ng/L (<51)
[2025-01-27 13:00] LABS: INFLUENZA TYPE A NEGATIVE FOR TYPE A (NEGATIVE); INFLUENZA TYPE B NEGATIVE FOR TYPE B (NEGATIVE); SARS-COV2 (COVID) ANTIGEN,FIA Negative (Negative)
[2025-01-27 14:00] VITALS: BP 124/68; PULSE 66; RESP 18; O2SAT 99
[2025-01-27] MEDS ORDERED: CHLO25TA3 PO (15:56)
[2025-01-27] MEDS ORDERED: AZIT-164 PO (16:06)
[2025-01-27] MEDS ORDERED: CEFP100T8 PO (16:06)
[2025-01-27] MEDS: BENZONATATE 100 MG CAPSULE PO ONE (16:10)
[2025-01-27] MEDS: CEFPODOXIME PROXETIL 200 MG TABLET PO ONE (16:10)
[2025-01-27] MEDS: AZITHROMYCIN 500 MG TABLET PO ONE (16:11)
== END 2025-01-27 16:20 | disposition home or self-care (01) ==
LOC: EMS 11:34
DX: J18.9 Pneumonia, unspecified organism (principal); R05.9 Cough, unspecified; E11.9 Type 2 diabetes mellitus without complications; F32.9 Major depressive disorder, single episode, unspecified; E78.00 Pure hypercholesterolemia, unspecified; I10 Essential (primary) hypertension; I25.10 Atherosclerotic heart disease of native coronary artery without angina pectoris; Z90.49 Acquired absence of other specified parts of digestive tract; Z79.82 Long term (current) use of aspirin; Z79.01 Long term (current) use of anticoagulants; Z79.899 Other long term (current) drug therapy; Z20.822 Contact with and (suspected) exposure to COVID-19
CPT/HCPCS: 99285; 71045; 87426; 80048; 83880; 84484; 85025; 87804; 36415; 93005; J0456

== ENCOUNTER 2025-07-07 11:07 | Emergency (ER) | payer MEDICARE, OTHER ==
[~2025-07-07] VITALS: Ht 162.6 cm; Wt 68.0 kg
[~2025-07-07 11:07] MED LIST changes: +AZIT-164 PO; +CEFP100T8 PO; +CHLO25TA3 PO; -IBUP-1492 PO; -MECL-302 PO
[2025-07-07 11:41] VITALS: TEMP 98.1
[2025-07-07 11:50] VITALS: BP 140/71; PULSE 96; RESP 18; O2SAT 99
== END 2025-07-07 13:23 | disposition left against medical advice (07) ==
LOC: EMS 11:10
DX: N94.89 Other specified conditions associated with female genital organs and menstrual cycle (principal); Z53.21 Procedure and treatment not carried out due to patient leaving prior to being seen by health care provider
CPT/HCPCS: 99281; Z7502